=== PATIENT | female | born 1980 | race Asian ===

== ENCOUNTER 2018-05-09 05:38 | Inpatient (IN) | payer BC ==
[2018-05-09] MEDS ORDERED: METHYLERGONOVINE 0.2 MG INJ IM ×2 (06:00→13:00)
[2018-05-09] MEDS ORDERED: MISOPROSTOL 200 MCG TAB PR ×2 (06:00→13:00)
[2018-05-09] MEDS ORDERED: CARBOPROST 250 MCG INJ IM ×2 (06:00→13:00)
[2018-05-09] MEDS ORDERED: OXYTOCIN 30 UNITS/LR 500 ML IV ×2 (06:00→13:00)
[2018-05-09 06:21] LABS: ADD MAN DIFF? NO
[2018-05-09 06:27] LABS: WHITE BLOOD COUNT 6.7 10^3/ul (4.8-10.8)
[2018-05-09 06:27] LABS: ABNORMAL IP MESSAGE 1; BASOPHILS % 0.2 % (0.0-2.0); EOSINOPHILS # 0.1 10^3/ul (0.0-0.5); EOSINOPHILS % 1.1 % (0.0-7.0); HEMOGLOBIN 10.1 g/dl (12.0-16.0); LYMPHOCYTES # 0.9 10^3/ul (0.8-2.9); LYMPHOCYTES % 13.5 % (15.0-51.0); MEAN CORPUSCULAR HEMOGLOBIN 22.2 pg (29.0-33.0); MEAN CORPUSCULAR HGB CONC 32.6 g/dl (32.0-37.0); MEAN CORPUSCULAR VOLUME 68.1 fl (82.0-101.0); MONOCYTE # 0.4 10^3/ul (0.3-0.9); MONOCYTES % 5.3 % (0.0-11.0); NEUTROPHIL # 5.2 10^3/ul (1.6-7.5); NEUTROPHILS % 77.6 % (39.0-77.0); PLATELET COUNT 160 10^3/UL (140-415); RED BLOOD COUNT 4.55 10^6/ul (4.20-5.40); RED CELL DISTRIBUTION WIDTH 15.4 % (11.5-14.5)
[2018-05-09 06:40] LABS: MEAN PLATELET VOLUME 12.4 fl (7.4-10.4); POSITIVE DIFF @See below
[2018-05-09 06:52] LABS: INR 0.85; PROTIME 11.7 Sec (11.9-14.9); PT RATIO 0.9
[2018-05-09 06:53] LABS: PARTIAL THROMBOPLASTIN TIME 26.5 Sec (25.0-35.0)
[2018-05-09] MEDS: LACTATED RINGER'S 1,000 ML IV ×4 (07:00→22:59)
[2018-05-09 07:22] LABS: HEPATITIS B SURFACE ANTIGEN NEGATIVE (NEGATIVE)
[2018-05-09] MEDS: CITRIC ACID/SODIUM CITRATE 15 ML CUP PO (07:30)
[2018-05-09] MEDS: ONDANSETRON 4 MG INJ IV (07:42)
[2018-05-09] MEDS ORDERED: FENTAnyl 50 MCG/ML VIAL (08:18)
[2018-05-09] MEDS ORDERED: METOCLOPRAMIDE 10 MG INJ (08:18)
[2018-05-09] MEDS ORDERED: morphine SULFATE/PF (10 MG/10 ML) INJ (08:18)
[2018-05-09] MEDS ORDERED: PHENYLephrine (100 MCG/ML) 5ML SYG (08:19)
[2018-05-09] MEDS ORDERED: OXYTOCIN 10 UNIT INJ (08:19)
[2018-05-09] MEDS ORDERED: BUPIVACAINE 0.75%/DEXT (SPINAL) 2 ML INJ (08:24)
[2018-05-09] MEDS: CEFAZOLIN 2 GM/50 ML (PMX) 50 ML IV (09:47)
[2018-05-09] MEDS ORDERED: NALOXONE (0.4 MG/ML) INJ IV (10:30)
[2018-05-09] MEDS ORDERED: morphine 2 MG INJ IV ×2 (10:30)
[2018-05-09] MEDS ORDERED: FENTAnyl 50 MCG/ML VIAL IV ×3 (10:30)
[2018-05-09] MEDS ORDERED: TRIMETHOBENZAMIDE 100 MG/ML VIAL IM ×2 (10:30)
[2018-05-09] MEDS ORDERED: IPRATROPIUM (NEB) 0.5 MG/2.5 ML AMP HHN (10:30)
[2018-05-09] MEDS ORDERED: NALBUPHINE HCL (10 MG/1 ML) INJ IV (10:30)
[2018-05-09] MEDS ORDERED: ONDANSETRON 4 MG INJ IV ×3 (10:30→13:00)
[2018-05-09] MEDS ORDERED: HYDROmorphONE 1 MG/5 ML IV SYRINGE IV ×3 (10:30)
[2018-05-09] MEDS ORDERED: EPHEDrine SULFATE 50 MG/5 ML SYG IV (10:30)
[2018-05-09] MEDS ORDERED: OXYCODONE/ACETAMINOPHEN (5/325) TAB PO ×2 (10:30)
[2018-05-09] MEDS ORDERED: DIPHENHYDRAMINE 50 MG INJ IV ×2 (10:30→13:00)
[2018-05-09] MEDS ORDERED: ALBUTEROL 0.083% (NEB) 2.5 MG/3 ML AMP HHN (10:30)
[2018-05-09] MEDS ORDERED: MEPERIDINE 25 MG INJ IV (10:30)
[2018-05-09] MEDS ORDERED: hydrALAzine 20 MG INJ IV (10:30)
[2018-05-09] MEDS ORDERED: LABETALOL HCL 20MG INJ IV (10:30)
[2018-05-09] MEDS: OXYTOCIN 30 UNITS/LR 500 ML IV (10:58)
[2018-05-09] MEDS: DIPHENHYDRAMINE 50 MG INJ IV (10:58)
[2018-05-09] MEDS ORDERED: ZOLPIDEM 5 MG TAB PO (13:00)
[2018-05-09] MEDS ORDERED: LANOLIN 7 GM TUBE TOP (13:00)
[2018-05-09 17:23] LABS: RAPID PLASMA REAGIN NONREACTIVE (NR)
[2018-05-09] MEDS: SENNA/DOCUSATE NA (8.6MG/50MG) TAB PO (21:02)
[2018-05-10] MEDS: KETOROLAC 30 MG INJ IV (04:55)
[2018-05-10] MEDS: LACTATED RINGER'S 1,000 ML IV (06:24)
[2018-05-10 07:16] LABS: ADD MAN DIFF? NO
[2018-05-10 07:20] LABS: BASOPHILS % 0.2 % (0.0-2.0); EOSINOPHILS # 0.1 10^3/ul (0.0-0.5); EOSINOPHILS % 0.5 % (0.0-7.0); HEMATOCRIT 29.4 % (37.0-47.0); HEMOGLOBIN 9.4 g/dl (12.0-16.0); LYMPHOCYTES % 7.6 % (15.0-51.0); MEAN CORPUSCULAR HEMOGLOBIN 22.1 pg (29.0-33.0); MEAN CORPUSCULAR VOLUME 69.2 fl (82.0-101.0); MONOCYTE # 0.6 10^3/ul (0.3-0.9); MONOCYTES % 4.3 % (0.0-11.0); NEUTROPHIL # 11.2 10^3/ul (1.6-7.5); NEUTROPHILS % 86.3 % (39.0-77.0); NUCLEATED RED BLOOD CELLS% 0.2 /100WBC (0.0-0.0); PLATELET COUNT 150 10^3/UL (140-415); RED BLOOD COUNT 4.25 10^6/ul (4.20-5.40); RED CELL DISTRIBUTION WIDTH 15.6 % (11.5-14.5)
[2018-05-10 07:20] LABS: WHITE BLOOD COUNT 12.9 10^3/ul (4.8-10.8)
[2018-05-10] MEDS: SENNA/DOCUSATE NA (8.6MG/50MG) TAB PO ×2 (08:55→20:59)
[2018-05-10] MEDS ORDERED: OXYCODONE/ACETAMINOPHEN (5/325) TAB PO (09:00)
[2018-05-10] MEDS: IBUPROFEN 600 MG TAB PO ×3 (12:06→23:41)
[2018-05-10] MEDS ORDERED: IBUPROFEN 600 MG TAB PO (18:00)
[2018-05-10] MEDS: OXYCODONE/ACETAMINOPHEN (5/325) TAB PO (18:12)
[2018-05-11] MEDS: OXYCODONE/ACETAMINOPHEN (5/325) TAB PO ×2 (01:30→06:54)
[2018-05-11] MEDS: IBUPROFEN 600 MG TAB PO ×4 (05:34→23:50)
[2018-05-11] MEDS: FERROUS GLUCONATE (EC) 325 MG TAB PO (09:03)
[2018-05-11] MEDS: SENNA/DOCUSATE NA (8.6MG/50MG) TAB PO ×2 (09:03→21:26)
[2018-05-12] MEDS: IBUPROFEN 600 MG TAB PO ×2 (05:31→12:43)
[2018-05-12] MEDS: FERROUS GLUCONATE (EC) 325 MG TAB PO (09:09)
[2018-05-12] MEDS: SENNA/DOCUSATE NA (8.6MG/50MG) TAB PO (09:09)
[2018-05-12] MEDS: DIPHTH/TET/ACEL PERTUSS (ADULT) 0.5 ML VIAL IM* (10:48)
== END 2018-05-12 17:30 | disposition home or self-care (01) | DRG 766 ==
LOC: L-D 05:38 → PP1 12:30
PROVIDERS: Obstetrics & Gynecology
PROC: 10D00Z1 Extraction of Products of Conception, Low, Open Approach (ICD-10-PCS; principal; 2018-05-09 07:30)
PROC: 0UB70ZZ Excision of Bilateral Fallopian Tubes, Open Approach (ICD-10-PCS; 2018-05-09 07:30)
PROC: 4A1HXCZ Monitoring of Products of Conception, Cardiac Rate, External Approach (ICD-10-PCS; 2018-05-09 07:30)
DX: O34.211 Maternal care for low transverse scar from previous cesarean delivery (principal); Z3A.39 39 weeks gestation of pregnancy; Z37.0 Single live birth; Z30.2 Encounter for sterilization; Z23 Encounter for immunization
CPT/HCPCS: 85025; 85610; 85730; 86592; 86850; 86900; 86901; 87340; 90715; 99464